=== PATIENT | female | born 1970 | race Caucasian/White ===

== ENCOUNTER 2021-02-03 20:35 | Emergency (ER) | payer OTHER ==
[~2021-02-03 20:35] MED LIST: AUGMENTIN250 MG PO; COZAAR100 MG PO; CYCLOBENZAPRINE10 MG PO; DICLOFENAC SODI75 MG PO; IBUPROFEN800 MG PO; ROBAXIN500 MG PO
[2021-02-03 21:27] LABS: BASOPHIL 0.6 % (0-2); EOSINOPHIL 5.3 % (0-5); HCT 43.3 % (37.0-47.0); HGB 14.7 g/dl (12.5-16.0); LYMPHOCYTE 40.1 % (15-48); MCH 30.2 pg (25.0-31.0); MCHC 33.9 g/dL (32.0-36.0); MCV 88.9 fL (78.0-100.0); MPV 10.6 fL (6.0-9.5); NEUTROPHIL 46.9 % (41-80); NRBC 0; PLT 300 K/uL (150-400); RBC 4.87 M/uL (4.20-5.40); RDW 12.3 % (11.5-14.0); WBC 7.7 K/uL (4.0-10.5)
[2021-02-03 21:33] LABS: INR 0.92 (0.9-1.2); PROTHROMBIN TIME 11.8 SECONDS (11.8-13.4); PTT 29.7 SECONDS (24.4-34.7)
[2021-02-03 21:41] LABS: ALBUMIN 3.6 g/dL (3.4-5.0); BILIRUBIN - TOTAL 0.2 mg/dL (0.2-1.0); BUN/CREAT RATIO (CALC) 13.8 RATIO; CREATININE 0.65 mg/dL (0.51-0.95); GLOBULIN (CALCULATION) 3.8 g/dL; TOTAL PROTEIN 7.4 g/dL (6.4-8.2)
[2021-02-03 21:49] LABS: CKMB <0.5 ng/mL (0.0-3.6)
[2021-02-03 23:04] LABS: BILIRUBIN NEGATIVE (NEGATIVE); BLOOD NEGATIVE Ery/uL (NEGATIVE); CLARITY CLEAR (CLEAR); COLOR YELLOW (YELLOW); GLUCOSE (U) NORMAL (NORMAL); LEUKOCYTES NEGATIVE Leu/uL (NEGATIVE); NITRITE NEGATIVE (NEGATIVE); PROTEIN NEGATIVE (NEGATIVE); SPECIFIC GRAVITY 1.025 (1.001-1.030); UROBILINOGEN 0.2 mg/dL (0.2-1.0); pH 6.5 (5.0-9.0)
[2021-02-03 23:11] LABS: AMPHETAMINES NEGATIVE (NEGATIVE); BARBITURATES NEGATIVE (NEGATIVE); ECSTASY (MDMA) NEGATIVE (NEGATIVE); MARIJUANA (THC) NEGATIVE (NEGATIVE); METHADONE NEGATIVE (NEGATIVE); OPIATES NEGATIVE (NEGATIVE); OXYCODONE NEGATIVE (NEGATIVE)
[2021-02-04] MEDS ORDERED: COZAAR100 MG PO (00:14)
[2021-02-04] MEDS ORDERED: ASPIRIN EC81 MG PO (00:14)
== END 2021-02-04 00:25 | disposition left against medical advice (07) ==
LOC: FER 20:35
PROVIDERS: Emergency Medicine Emergency Medical Services
DX: R20.2 Paresthesia of skin (principal); I10 Essential (primary) hypertension; F17.210 Nicotine dependence, cigarettes, uncomplicated; Z86.16 Personal history of COVID-19
CPT/HCPCS: 36415; 70450; 71045; 80053; 80305; 81003; 82550; 82553; 84484; 85025; 85610; 85730; 93005